=== PATIENT | female | born 1965 | race Caucasian/White ===

== ENCOUNTER 2023-05-18 22:04 | Emergency (ER) | payer BC ==
[~2023-05-18] VITALS: Ht 172.7 cm; Wt 72.6 kg
[2023-05-18 22:13] VITALS: O2SAT 97
== END 2023-05-19 00:05 | disposition home or self-care (01) ==
LOC: ER 22:07
DX: I83.92 Asymptomatic varicose veins of left lower extremity (principal); I80.3 Phlebitis and thrombophlebitis of lower extremities, unspecified
CPT/HCPCS: A4606; A4663